=== PATIENT | male | born 1985 | race Two or more races ===

== ENCOUNTER 2021-11-14 10:10 | Emergency (ER) | payer BC ==
--- NOTE | 2021-11-14 10:14 | EDM.PDOC ---
ED HPI GENERAL MEDICAL PROBLEM - General Stated Complaint: ABDOMINAL PAIN Time Seen by Provider: 11/14/21 10:14 Source of Information: Reports: Patient History Limitations: Reports: No Limitations - History of Present Illness INITIAL COMMENTS - FREE TEXT/NARRATIVE: HISTORY AND PHYSICAL: History of present illness: The patient is a 36-year-old male, who is Citizen Of [place]speaking all information was collected via hotel or motel cleaning supervisor tablet, presents to the emergency department with complaints of intermittent left flank pain that radiates to his back. Patient states that there are times when he has gas and he gets a little bit of relief. This is not all the time. He rates his pain as a 5 out of 10 and states that it is mild now. The patient states that he has been having normal bowel movements but yet that he takes senna to make the pain better. The patient was seen by Alissa on 10/30/21 and given Augmentin for an " inflamed colon". The patient was taking the medication as if a pain medication and that he only took it if he was going to eat. 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 Patient denies any fever, chills, headache, change in vision, syncope or near syncope. Denies any chest pain, back pain, shortness of breath or cough. Denies any nausea, vomiting, diarrhea, constipation or dysuria. Has not noted any blood in urine or stool. Patient has been eating and drinking appropriately. Review of systems: As per history of present illness and below otherwise all systems reviewed and negative. Past medical history: As per history of present illness and as reviewed below otherwise noncontributory. Surgical history: As per history of present illness and as reviewed below otherwise noncontributory. Social history: See social history for further information Family history: As per history of present illness and as reviewed below otherwise noncontributory. Physical exam: General: Well developed and well nourished. Alert and orientated x 3. Nontoxic in appearance and in no acute distress. Vital signs are stable and have been reviewed by me. Nursing notes were reviewed. HEENT: Atraumatic, normocephalic, pupils equal and reactive bilaterally, negative for conjunctival pallor or scleral icterus, mucous membranes moist, TMs normal bilaterally, throat clear, neck supple, nontender, trachea midline. No d rooling or trismus noted. No meningeal signs. No hot potato voice noted. Lungs: Clear to auscultation bilaterally. No wheezes, rales, or rhonchi. Chest nontender. Normal work of breathing, no accessory muscles used. Heart: S1S2, regular rate and rhythm without overt murmur, gallops, or rubs. No JVD. No peripheral edema Abdomen: Soft, nondistended, nontender. Normoactive bowel sounds. Negative for masses or costovertebral tenderness. Skin: Intact, warm, dry. No lesions or rashes noted. Hematologic: No petechiae or purpra. Mucosa appropriate color and normal nail bed color and refill. Extremities: Atraumatic, moves all extremities per self without difficulty or deficits, negative for cords or calf pain. Neurovascular unremarkable. Neuro: Awake, alert, oriented. Cranial nerves II through XII unremarkable. Cerebellum unremarkable. Motor and sensory unremarkable throughout. Exam nonfocal. Psychiatric: Mood and affect are appropriate. Normal thought process. Answering questions appropriately. Notes: *This patient was seen and evaluated during the 2019 SARS-CoV-2 novel coronavirus pandemic period. Community viral transmission is ongoing at time of this encounter and the emergency department is operating under pandemic response procedures. As stated above the patient is a 36-year-old male who presents to the emergency department with complaints of intermittent left flank pain that radiates around to his back. Patient states that sometimes when he has gas the pain will feel somewhat better. He did see a physician on and was prescribed Augmentin for a "inflamed colon", however he has not been taking the medication as prescribed. The patient did not eat for 2 days as he had been driving nonstop and did not take the medication. He assumed the medication was some type of pain medication. The patient also takes senna to help his stomach feel better again the patient denies any constipation stating that he has a normal bowel movement every day. For today's purposes we will work the patient up as the language barrier even with the hotel or motel cleaning supervisor tablet is evident. I have ordered blood work, urinalysis, and a CT of his abdomen/pelvis. I did explain all this via the hotel or motel cleaning supervisor tablet to the patient. The patient's CBC and CMP are unremarkable. The patient's urine is negative for an infection. The abdominal/pelvis CT IMPRESSION: Unremarkable contrast enh anced CT of the abdomen and pelvis. No acute abnormality to explain patient`s pain. Seen in maintenance team leader tablet I conveyed these results to the patient. There was still some confusion on the patient's part as to why he was having abdominal pain. I explained to the patient that he did not have any conditions that I could see need to treat. As the patient does get relief when he expels gas I suggested he follow-up with the primary care for possibility of a colonoscopy. I offered the patient pain control during this visit and he again declined stating that he really did not have any pain right now. I informed the patient that he should return to the emergency room should he start having pain again. The patient indicated that he would follow-up with his primary care in [place]. I have talked with the patient about today's findings, in addition to providing specific details for plan of care. Reassessment at the time of disposition demonstrates that the patient is in no acute distress. The patient is stable for discharge, counseling was provided and we discussed in great detail signs and symptoms that would prompt them to return to the Emergency Department. Medication, follow up and supportive care measures were reviewed and discussed. Voices understanding and is agreeable to plan of care. Denies any further questions or concerns at this time. Diagnostics: CBC, CMP, UA, CT abdomen pelvis Therapeutics: IV fluids Impression: Abdominal pain Plan: 1. You were evaluated today on an emergent basis. Your complaints of on and off again lower left abdominal pain was evaluated with blood work which looked at your white blood cell count to see if there is any type of infection. This was normal. We looked at your electrolytes and they were also normal. Your kidney function is normal. I did a CT of your abdomen/pelvis and this was normal. There were no abnormalities. Your intermittent pain is most likely caused by gas as it is relieved when you let loose your gas. You need to follow-up with a primary care doctor and you stated that you would follow-up with your doctor in [place]. If you have more pain you can come back to the emergency department. You declined pain medication today and I see no reason to give you any kind of pain medication as you are not in pain at present. 2. You can alternate Tylenol and ibuprofen as needed for pain and fever m anagement. 3. We encourage you to follow up with your primary care provider and/or recommended specialist in the next few days for re-evaluation and further care/management. 4. If your symptoms should worsen, new symptoms develop or any of the signs and symptoms we discussed should arise please return to the emergency room or call 911 (if needed). Definitive disposition and diagnosis as appropriate pending reevaluation and review of above. Left Lower Abdomen Pain Score (Numeric/FACES): 5 - Related Data Allergies Allergy/AdvReac Type Severity Reaction Status Date / Time honey Allergy Swelling Verified 11/14/21 10:31 Home Meds: Home Meds Amoxicillin 875 mg PO 11/14/21 [History] Sennosides [Senna] 8.6 mg PO 11/14/21 [History] ED ROS GENERAL - Review of Systems Review Of Systems: Comprehensive ROS is negative, except as noted in HPI. ED EXAM, GENERAL - Physical Exam Exam: See Below (See dictation) Course - Vital Signs Last Recorded V/S: Last Vital Signs Temp 96.7 F L 11/14/21 10:31 Pulse 71 11/14/21 13:02 Resp 16 11/14/21 10:31 BP 122/71 11/14/21 13:02 Pulse Ox 99 11/14/21 10:31 - Orders/Labs/Meds Orders: Active Orders 24 hr Category Date Time Status Saline Lock Insert [OM.PC] Stat Oth 11/14/21 10:38 Ordered Labs: Laboratory Tests 11/14/21 11/14/21 11/14/21 Range/Units 10:50 10:50 11:00 WBC 7.83 (4.0-11.0) K/uL RBC 4.66 (4.50-5.90) M/uL Hgb 14.2 (13.0-17.0) g/dL Hct 41.1 (38.0-50.0) % MCV 88.2 (80.0-98.0) fL MCH 30.5 (27.0-32.0) pg MCHC 34.5 (31.0-37.0) g/dL RDW Std Deviation 41.7 (28.0-62.0) fl RDW Coeff of Dev 13 (11.0-15.0) % Plt Count 258 (150-400) K/uL MPV 9.90 (7.40-12.00) fL Neut % (Auto) 42.2 L (48.0-80.0) % Lymph % (Auto) 48.0 H (16.0-40.0) % [place] % (Auto) 7.7 (0.0-15.0) % Eos % (Auto) 1.7 (0.0-7.0) % Baso % (Auto) 0.4 (0.0-1.5) % Neut # (Auto) 3.3 (1.4-5.7) K/uL Lymph # (Auto) 3.8 H (0.6-2.4) K/uL [place] # (Auto) 0.6 (0.0-0.8) K/uL Eos # (Auto) 0.1 (0.0-0.7) K/uL Baso # (Auto) 0.0 (0.0-0.1) K/uL Nucleated RBC % 0.0 /100WBC Nucleated RBCs # 0 K/uL Sodium 141 (136-148) mmol/L Potassium 3.7 (3.5-5.1) mmol/L Chloride 105 (98-107) mmol/L Carbon Dioxide 26.0 (21.0-32.0) mmol/L BUN 14 (7.0-18.0) mg/dL Creatinine 1.0 (0.8-1.3) mg/dL Est Cr Clr Drug Dosing TNP Estimated GFR (MDRD) > 60.0 ml/min Glucose 120 H (74-106) mg/dL Calcium 9.4 (8.5-10.1) mg/dL Total Bilirubin 0.3 (0.2-1.0) mg/dL AST 22 (15-37) IU/L ALT 29 (14-63) IU/L Alkaline Phosphatase 80 (46-116) U/L Total Protein 7.7 (6.4-8.2) g/dL Albumin 3.9 (3.4-5.0) g/dL Globulin 3.8 (2.6-4.0) g/dL Albumin/Globulin Ratio 1.0 (0.9-1.6) Urine Color YELLOW Urine Appearance CLEAR Urine pH 6.0 (5.0-8.0) Ur Specific [place] >= 1.030 (1.001-1.035) Urine Protein NEGATIVE (NEGATIVE) mg/dL Urine Glucose (UA) NEGATIVE (NEGATIVE) mg/dL Urine Ketones NEGATIVE (NEGATIVE) mg/dL Urine Occult Blood NEGATIVE (NEGATIVE) Urine Nitrite NEGATIVE (NEGATIVE) Urine Bilirubin NEGATIVE (NEGATIVE) Urine Urobilinogen 0.2 (<2.0) EU/dL Ur Leukocyte Esterase NEGATIVE (NEGATIVE) Meds: Medications Discontinued Medications Generic Name Dose Route Start Last Admin Trade Name Freq PRN Reason Stop Dose Admin Sodium Chloride 1,000 mls @ 999 mls/hr 11/14/21 10:37 11/14/21 10:49 Normal Saline IV 11/14/21 11:37 999 mls/hr .BOLUS ONE Administration Sodium Chloride 10 ml 11/14/21 10:37 11/14/21 10:49 Sodium Chloride 0.9% 10 Ml Syringe FLUSH 10 ml ASDIRECTED PRN Administration Keep Vein Open Sodium Chloride 2.5 ml 11/14/21 10:37 11/14/21 10:49 Sodium Chloride 0.9% 2.5 Ml Syringe FLUSH 2.5 ml ASDIRECTED PRN Administration Keep Vein Open Departure - Departure Time of Disposition: 12:37 Disposition: Home, Self-Care 01 Condition: Good Clinical Impression: Abdominal pain Qualifiers: Abdominal location: left lower quadrant Qualified Code(s): R10.32 - Left lower quadrant pain - Discharge Information *PRESCRIPTION DRUG MONITORING PROGRAM REVIEWED*: Not Applicable *COPY OF PRESCRIPTION DRUG MONITORING REPORT IN PATIENT DENNIS: Not Applicable Instructions: Abdominal Pain, Adult, [id number] Referrals: PCP,None [Primary Care Provider] - Forms: ED Department Discharge Additional Instructions: La siguiente informacin se proporciona a los pacientes atendidos en el depa rtamento de emergencias que estn siendo dados de urban a nuno hogar. Esta informacin es para describir abbey opciones para la atencin de seguimiento. Proporcionamos a todos los pacientes atendidos en nuestro departamento de emergencias judson derivacin de seguimiento. La necesidad de seguimiento, as rg el momento y las circunstancias, varan segn los detalles de nuno visita al departamento de emergencias. Si no tiene un mdico de atencin primaria en el personal, le proporcionaremos judson referencia. Siempre le recomendamos que se ponga en contacto con nuno mdico personal despus de judson visita al servicio de urgencias para informarle de las circunstancias de la visita y para hacer un seguimiento con l y / o la necesidad de cualquier derivacin a un especialista consultor. El departamento de emergencias tambin lo derivar a un especialista cuando sea apropiado. Esta remisin le asegura que tiene la oportunidad de recibir atencin de seguimiento con un especialista. Todas estas medidas se ludwig en un esfuerzo por brindarle judson atencin ptima, que incluye nuno seguimiento. En todas las circunstancias, siempre lo alentamos a que se comunique con nuno mdico privado, quien sigue siendo un recurso para coordinar nuno atencin. Cuando llame para recibir atencin de seguimiento, informe al consultorio que lindsey seguimiento es de nuno visita reciente a la ayana de emergencias. Si por alguna rene n se le niega el seguimiento, comunquese con el Departamento de Emergencias del [facility] al y solicite hablar con la enfermera a cargo del departamento de emergencias. [facility] [address] [place] [id number] [facility] [address] [place] [address] Plan: 1. Usted fue evaluado hoy de forma emergente. Abbey quejas de dolor abdominal inferior corie intermitente se evaluaron con anlisis de mega que analizaron nuno recuento de glbulos blancos para hardik si haba algn tipo de infeccin. [place] era normal. Analizamos abbey electrolitos y tambin mike normales. Nuno funcin renal es normal. Hice judson tomografa computarizada de nuno abdomen / pelvis y esto fue normal. No hubo anomalas. Es muy probable que nuno dolor intermitente sea causado por el gas, ya que se aline cuando suelta el gas. Necesita hacer un seguimiento con un mdico de atencin primaria y dijo que dimitrios un seguimiento con nuno mdico en [place]. Si tiene ms dolor, puede volver al servicio de urgencias. Usted rechaz los analgsicos hoy y no veo ninguna razn para darle ningn tipo de analgsico, ya que no tiene dolor en lindsey momento. 2. Puede alternar Tylenol e ibuprofeno segn sea necesario para controlar el dolor y la fiebre. 3. Lo alentamos a hacer un seguimiento con nuno proveedor de atencin primaria y / o especialista recomendado en los prximos osei para judson reevaluacin y atencin / manejo adicional. 4. Si abbey sntomas empeoran, aparecen nuevos sntomas o surge alguno de los signos y sntomas que discutimos, regrese a la ayana de emergencias o llame al 911 (si es necesario). The following information is given to patients seen in the emergency department who are being discharged to home. This information is to outline your options for follow-up care. We provide all patients seen in our emergency department with a follow-up referral. The need for follow-up, as well as the timing and circumstances, are variable depending upon the specifics of your emergency department visit. If you don't have a primary care physician on staff, we will provide you with a referral. We always advise you to contact your personal physician following an emergency department visit to inform them of the circumstance of the visit and for follow-up with them and/or the need for any referrals to a consulting specialist. The emergency department will also refer you to a specialist when appropriate. This referral assures that you have the opportunity for follow-up care with a specialist. All of these measure are taken in an effort to provide you with optimal care, which includes your follow-up. Under all circumstances we always encourage you to contact your private physician who remains a resource for coordinating your care. When calling for follow-up care, please make the office aware that this follow-up is from your recent emergency room visit. If for any reason you are refused follow-up, please contact the [facility] Emergency Department at and asked to speak to the emergency department charge nurse. [facility] [address] [place] [id number] [place] [address] Plan: 1. You were evaluated today on an emergent basis. Your complaints of on and off again lower left abdominal pain was evaluated with blood work which looked at your white blood cell count to see if there is any type of infection. This was normal. We looked at your electrolytes and they were also normal. Your kidney function is normal. I did a CT of your abdomen/pelvis and this was normal. There were no abnormalities. Your intermittent pain is most likely caused by gas as it is relieved when you let loose your gas. You need to follow-up with a primary care doctor and you stated that you would follow-up with your doctor in [place]. If you have more pain you can come back to the emergency department. You declined pain medication today and I see no reason to give you any kind of pain medication as you are not in pain at present. 2. You can alternate Tylenol and ibuprofen as needed for pain and fever management. 3. We encourage you to follow up with your primary care provider and/or recommended specialist in the next few days for re-evaluation and further care/m anagement. 4. If your symptoms should worsen, new symptoms develop or any of the signs and symptoms we discussed should arise please return to the emergency room or call 911 (if needed). Sepsis Event Note (ED) - Focused Exam Vital Signs: Vital Signs Temp Pulse Resp BP Pulse Ox 11/14/21 13:02 71 122/71 11/14/21 12:30 78 131/66 11/14/21 11:30 70 114/72 11/14/21 10:31 96.7 F L 79 16 127/67 99 - My Orders Last 24 Hours: My Active Orders 11/14/21 10:38 Saline Lock Insert [OM.PC] Stat - Assessment/Plan Last 24 Hours: My Active Orders 11/14/21 10:38 Saline Lock Insert [OM.PC] Stat
[2021-11-14] MEDS ORDERED: Sodium Chloride 0.9% 2.5 ML Syringe FLUSH PRN (10:37)
[2021-11-14] MEDS ORDERED: Sodium Chloride 0.9% 10 ML Syringe FLUSH PRN (10:37)
[2021-11-14] MEDS ORDERED: Sodium Chloride 0.9% 1,000 ML IV ONE (10:37)
[2021-11-14 11:18] LABS: BLOOD UREA NITROGEN,BUN 14 mg/dL (7.0-18.0); CHLORIDE,CL 105 mmol/L (98-107); GLUCOSE RANDOM 120 mg/dL (74-106); POTASSIUM,K 3.7 mmol/L (3.5-5.1); SODIUM,NA 141 mmol/L (136-148)
--- NOTE | 2021-11-14 11:55 | CT ---
INDICATION: Left lower quadrant pain TECHNIQUE: CT abdomen and pelvis acquired with IV contrast. 100 cc of Isovue 370 COMPARISON: None FINDINGS: The visualized portions of the lung bases are clear. Evaluation is somewhat limited due to motion. The liver, spleen, pancreas and adrenal glands are unremarkable. The gallbladder is decompressed. The kidneys enhance symmetrically without hydronephrosis. The bladder is partially distended and unremarkable. There are no dilated loops of small bowel to suggest obstruction.The appendix is normal.There is no intraperitoneal free air or fluid. The visualized osseous structures are unremarkable. IMPRESSION: Unremarkable contrast enhanced CT of the abdomen and pelvis. No acute abnormality to explain patient`s pain. Please note that all CT scans at this facility use dose modulation, iterative reconstruction, and/or weight-based dosing when appropriate to reduce radiation dose to as low as reasonably achievable. Dictated by Jocelyne Landers MD @ 11/14/2021 11:54:23 AM (Electronically Signed)
[2021-11-14] MEDS ORDERED: Iopamidol 755 MG/ML 500 ML Multipack Bottle IVPUSH ONE (15:56)
== END 2021-11-14 13:11 | disposition home or self-care (01) ==
LOC: MW.ED 10:10
DX: R10.32 Left lower quadrant pain (principal)
CPT/HCPCS: 74177; 80053; 81003; 85025; 99284; J7030; Q9967

== ENCOUNTER 2023-02-13 21:05 | Emergency (ER) | payer BC | END 2023-02-13 22:20 | disposition home or self-care (01) | LOC: MW.ED 21:05 | DX: L98.8 Other specified disorders of the skin and subcutaneous tissue (principal); Z91.018 Allergy to other foods | CPT/HCPCS: 99282; 99283 ==

== ENCOUNTER 2023-07-15 21:36 | Emergency (ER) | payer BC | END 2023-07-15 22:32 | disposition home or self-care (01) | LOC: MW.ED 21:36 | DX: Z13.9 Encounter for screening, unspecified (principal); Z91.018 Allergy to other foods | CPT/HCPCS: 99281; 99283 ==